=== PATIENT | female | born 2000 | race Caucasian/White ===

== ENCOUNTER 2023-12-27 14:35 | Emergency (ER) | payer OTHER ==
[2023-12-27 15:12] LABS: BASO % 0.2 % (0.0-1.0); EOS % 0.2 % (0.0-3.0); HEMATOCRIT 41.4 % (36.0-47.0); HEMOGLOBIN 14.6 g/dl (12.0-15.5); LYMPH # 0.5 10^3/uL (1.5-5.0); LYMPH % 6.8 % (24.0-44.0); MEAN CORPUSCULAR HEMOGLOBIN 32.1 pg (27.0-33.0); MEAN CORPUSCULAR HGB CONC 35.3 g/dl (32.0-36.5); MONO # 0.4 10^3/uL (0.0-0.8); NEUTROPHILS # 5.7 10^3/uL (1.5-8.5); NEUTROPHILS % 86.6 % (36.0-66.0); PLATELET COUNT, AUTOMATED 206 10^3/uL (150-450); RED BLOOD COUNT 4.55 10^6/uL (4.00-5.40); WHITE BLOOD COUNT 6.6 10^3/uL (4.0-10.0)
[2023-12-27 15:26] LABS: LIPASE 33 U/L (12-53)
[2023-12-27 15:28] LABS: ALBUMIN 3.6 G/DL (3.2-5.2); ALKALINE PHOSPHATASE 60 U/L (46-116); ALT/SGPT 22 U/L (7.0-40); AST/SGOT 16 U/L (<34); BILIRUBIN,DIRECT 0.3 MG/DL (<0.4); BILIRUBIN,TOTAL 0.9 MG/DL (0.3-1.2); BLOOD UREA NITROGEN 14 MG/DL (9-23); CARBON DIOXIDE LEVEL 24 MMOL/L (20-31); CHLORIDE LEVEL 106 MMOL/L (98-107); CREATININE FOR GFR 0.79 MG/DL (0.55-1.30); GLOMERULAR FILTRATION RATE > 60.0 (>60); GLUCOSE, FASTING 118 MG/DL (60-100); SODIUM LEVEL 140 MMOL/L (136-145); TOTAL PROTEIN 6.4 G/DL (5.7-8.2)
[2023-12-27 15:39] LABS: HCG, SERUM QUALITATIVE NEGATIVE (NEGATIVE)
[2023-12-27 16:29] VITALS: BP 111/60; TEMP 100.9; O2SAT 99
[2023-12-27] MEDS: NS 1,000 ML IV ONE (16:55)
[2023-12-27] MEDS: ONDANSETRON 4MG 2ML VIAL IV ONE (16:55)
[2023-12-27] MEDS: FAMOTIDINE 20MG/2ML VIAL IVP ONE (16:55)
[2023-12-27] MEDS ORDERED: PEPC1TAB5 PO (19:17)
[2023-12-27] MEDS ORDERED: ONDA4TAB6 PO (19:17)
== END 2023-12-27 19:27 | disposition home or self-care (01) ==
LOC: M ED 14:35
DX: A08.4 Viral intestinal infection, unspecified (principal); Z79.899 Other long term (current) drug therapy
CPT/HCPCS: 80048; 80076; 83690; 84703; 85025; 87486; 87581; 87633; 87798; 96361; 96374; 99284; J2405; S0028

== ENCOUNTER → 2023-12-30 | Outpatient (REF) | payer OTHER ==
[~2023-12-30] MED LIST: ONDA4TAB6 PO; PEPC1TAB5 PO
== END ==
LOC: M LAB REF 12:11
PROVIDERS: ATTEND Physician Assistant Medical
DX: R19.7 Diarrhea, unspecified (principal)